=== PATIENT | female | born 1960 | race Caucasian/White ===

== ENCOUNTER → 2022-03-05 13:19 | Outpatient (CLI) | payer OTHER, SELFPAY ==
--- NOTE | ~2022-03-05 | CT_ITS ---
EXAMINATION: CT orbit BI wo/w con DATE: 03/05/2022 13:57 INDICATION: Proptosis. TECHNIQUE: Computed tomography (CT) of the orbits was performed without and with 75 mL Omnipaque 350 intravenous contrast. Automated exposure control and iterative reconstruction technique were employed . The dose-length product was 439.80 mGy-cm. COMPARISON: None. FINDINGS: The extraocular muscles and optic nerves are normal. There is no abnormal mass. The ocular globes are normal. There is mucosal thickening in the paranasal sinuses. 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 There is mild rightward deviation of the nasal septum. IMPRESSION: 1. Normal orbits. Reviewed, dictated and finalized at location [facility]. IMPRESSION: 1. Normal orbits.
[2022-03-05 13:44] LABS: Estimated Glomerular Filt Rate > 60
== END ==
PROVIDERS: PCP Nurse Practitioner Family
DX: H05.241 Constant exophthalmos, right eye (principal)
CPT/HCPCS: 70482; Q9967

== ENCOUNTER 2023-10-05 10:45 | Outpatient (CLI) | payer OTHER, SELFPAY ==
--- NOTE | ~2023-10-05 | CT_ITS ---
Non-contrast CT scan of the Abdomen and Pelvis Clinical indication: Abdominal pain Technique: 2.5 mm axial scans were obtained through the abdomen and pelvis without intravenous or or al contrast. Dose reduction technique was used on this scan by utilizing automated exposure control a nd iterative reconstruction technique. The dose-length product (DLP) was 746.90 mGy-cm. Findings: Images through the lung bases reveal 7 mm pleural-based nodule right middle lobe (axial im age 4). There is an additional 3 mm right middle lobe pulmonary nodule (axial image 10). There is an additional 4 mm pleural-based nodule in the right middle lobe (axial image 3).. There is no evidence of renal or ureteral calculi. The kidneys and the ureters are nondilated. There is a 1.7 cm left renal mass, largely mildly hyperdense, with small associated fat components (coronal image 78 for example), suggestive of angiomyolipoma. The liver, spleen, pancreas, gallbladder, and adrenals appear normal. There are atherosclerotic calci fications of the aorta. There is no evidence of bowel obstruction. Images through the pelvis were performed. There is no evidence of ascites or lymphadenopathy. Urinary bladder unremarkable. No pelvic mass seen. Impression: 1.7 cm left renal mass, as detailed above. Given small amount of fat associated with the lesion, this is most suggestive of angiomyolipoma. Subcentimeter pulmonary nodules in the right middle lobe, as detailed above. According to Fleischner Society criteria, for a low-risk patient, recommend follow-up CT in 6-12 months, then consider additi onal 18-[address] For a high-risk patient, follow-up CT scans at both 6-12 months and 18-24 months are recommended. Reviewed, dictated and finalized at [facility]. Impression: 1.7 cm left renal mass, as detailed above. Given small amount of fat associated with the lesion, this is most suggestive of angiomyolipoma. Subcentimeter pulmonary nodules in the right middle lobe, as detailed above. Ac cording to Fleischner Society criteria, for a low-risk patient, recommend follo w-up CT in 6-12 months, then consider additional 18-[address]. For a high-ris k patient, follow-up CT scans at both 6-12 months and 18-24 months are recommen ded.
== END 2023-10-05 10:46 ==
LOC: GOSHIMG 10:46
PROVIDERS: PCP Nurse Practitioner Family; Visit Provider Nurse Practitioner Family
DX: R16.0 Hepatomegaly, not elsewhere classified (principal); R91.8 Other nonspecific abnormal finding of lung field
CPT/HCPCS: 74176

== ENCOUNTER 2023-12-30 08:57 | Outpatient (CLI) | payer OTHER, SELFPAY ==
--- NOTE | ~2023-12-30 | MR_ITS ---
EXAMINATION: MR abdomen wo/w con DATE: 12/30/2023 10:13 INDICATION: Kidney mass. TECHNIQUE: Magnetic resonance imaging (MRI) of the abdomen was performed without and with 14 mL Multi Placido intravenous contrast. COMPARISON: CT abdomen and pelvis 10/05/2023 FINDINGS: There is diffuse hepatic steatosis. The liver, gallbladder, spleen, pancreas, adrenal glands, and rig ht kidney are normal. There is a 1.9 cm enhancing mass in the left kidney contains fat, consistent wi th an angiomyolipoma. There is a 4 mm cyst in left kidney. There are no dilated loops of bowel. There are no pathologically enlarged lymph nodes. There is no free intraperitoneal fluid. IMPRESSION: 1. 1.9 cm angiomyolipoma in left kidney. Reviewed, dictated and finalized at location A.
== END 2023-12-30 08:58 | disposition home or self-care (01) ==
LOC: ANHIMG 09:02
PROVIDERS: PCP Nurse Practitioner Family; Visit Provider Urology
DX: D17.71 Benign lipomatous neoplasm of kidney (principal)
CPT/HCPCS: 74183; A9577